=== PATIENT | male | born 1985 | race Caucasian/White ===

== ENCOUNTER 2020-07-09 14:16 | Outpatient (CLI) | payer OTHER | END 2020-07-09 14:17 | disposition home or self-care (01) | LOC: COV 14:16 | PROVIDERS: ATTEND Family Medicine | DX: R05 Cough (principal); R06.02 Shortness of breath; Z20.822 Contact with and (suspected) exposure to COVID-19 ==

== ENCOUNTER 2022-03-15 08:00 | Outpatient (CLI) | payer OTHER | END 2022-03-15 23:59 | disposition home or self-care (01) | LOC: LAB 08:00 | PROVIDERS: ATTEND Physician Assistant | DX: R07.0 Pain in throat (principal) | CPT/HCPCS: 87070 ==

== ENCOUNTER 2024-01-02 00:33 | Outpatient (CLI) | payer OTHER | END 2024-01-02 23:59 | disposition E | LOC: EMS 00:33 ==